=== PATIENT | female | born 1960 | race Caucasian/White ===

== ENCOUNTER 2016-09-14 15:00 | Emergency (ER) | payer MEDICAID ==
--- NOTE | 2016-09-14 15:35 | EDPHY ---
H & P Stated Complaint: SMAKED HEADS WITH ANOTHER DANCER 09/03/NO LOC/NOW CONFUSION/ SLOWNESS/EMOTION Time Seen by Provider: 09/14/16 15:11 HPI/ROS: Chief Complaint: Head injury, headache, confusion HPI: 56-year-old woman who sustained a head injury on the 03 of September when she was dancing. She collided with another dancer on the left side of her head. The following Monday developed a headache has been having persistent waxing and waning headaches since. At worst it is a 7/10. Now is a 3/10 shake. Has been taking some ibuprofen. She has also been having increasing word-finding, difficulty sleeping size, some intermittent blurry vision in feels like she is having difficulty concentrating. Patient states that she did have another head injury during yoga several weeks ago. She is feeling a bit she is increasingly emotional labile and is starting to get very tearful very quickly. She does states she has been having increasing stressors recently regarding her residence in dealing with her landlord. Has a history of depression but does not take any medications. No weight loss or weight gain. No fevers or chills. No nausea or vomiting. No urinary symptoms. No increased thirst or urination. ROS: 10 point Review of Systems is negative except as noted in the HPI. PMH: Chronic back pain, depression Medications: None Allergies: Sulfa Social History: No smoking, no alcohol, no recreational drug use Family History: non-contributory Physical Exam: Gen: Awake, Alert, No Distress HEENT: Nose: no rhinorrhea Eyes: PERRLA, EOMI Mouth: Moist mucosa Neck: Supple, no JVD Chest: nontender, lungs clear to auscultation Heart: S1, S2 normal, no murmur Abd: Soft, non-tender, no guarding Back: no CVA tenderness, no midline tenderness Ext: no edema, non-tender Skin: no rash Neuro: CN II-XII intact, Sensation grossly intact, Strength 5/5 in bilateral upper and lower extremities - Personal History Current Tetanus/Diphtheria Vaccine: Yes - Medical/Surgical History Hx Asthma: No Hx Chronic Respiratory Disease: No Hx Diabetes: No Hx Cardiac Disease: No Hx Renal Disease: No Hx Cirrhosis: No Hx Alcoholism: No Hx HIV/AIDS: No Hx Splenectomy or Spleen Trauma: No Other PMH: BACK PROB/ADRENAL ISSUES/HEAD INJ/ - Social History Smoking Status: Never smoked Constitutional: Initial Vital Signs Temperature (C) 36.5 C 09/14/16 15:05 Heart Rate 69 09/14/16 15:05 Respiratory Rate 22 H 09/14/16 15:05 Blood Pressure 96/62 L 09/14/16 15:05 O2 Sat (%) 100 09/14/16 15:05 O2 Delivery Mode Room Air Allergies/Adverse Reactions: Sulfa (Sulfonamide Antibiotics) Allergy (Verified 09/14/16 15:03) Home Medications: Medication Instructions Recorded NK [No Known Home Meds] 09/14/16 Medical Decision Making ED Course/Re-evaluation: CT scan of the brain is normal. No evidence of significant acute intracranial abnormality. I suspect the patient's symptomatology is more secondary to emotional rather than structural cause. I will refer her back to both her primary care physician in to her therapist. She is not acutely suicidal or delusional. She is annie for safety. She has been given head injury instructions for what to return for should there be any concerns. - Data Points Laboratory Results: 09/14/16 15:05 Urine Color YELLOW Urine Appearance CLEAR Urine pH 6.0 (5.0-7.5) Ur Specific [place] 1.003 (1.002-1.030) Urine Protein NEGATIVE (NEGATIVE) Urine Ketones NEGATIVE (NEGATIVE) Urine Blood 1+ H (NEGATIVE) Urine Nitrate NEGATIVE (NEGATIVE) Urine Bilirubin NEGATIVE (NEGATIVE) Urine Urobilinogen NEGATIVE EU EU (0.2-1.0) Ur Leukocyte Esterase NEGATIVE (NEGATIVE) Urine RBC 5-10 /hpf H /hpf (0-3) Urine WBC 1-3 /hpf /hpf (0-3) Ur Epithelial Cells TRACE /lpf /lpf (NONE-1+) Urine Glucose NEGATIVE (NEGATIVE) Departure - Departure Disposition: Home, Routine, Self-Care Clinical Impression: Head injury Condition: Good Instructions: Head Injury (ED) Additional Instructions: Follow up with primary care physician in 3-4 days for re-evaluation. Return to the emergency depart for increasing headache, nausea, vomiting, difficulty concentrating, increasing depression, suicidal or homicidal thoughts , or any other concerns. Referrals: Jessi Saleem MD [Primary Care Provider] - As per Instructions
[2016-09-14 15:51] LABS: COLOR YELLOW; LEUKOCYTE ESTERASE,URINE NEGATIVE (NEGATIVE); NITRITE,URINE NEGATIVE (NEGATIVE)
[2016-09-14 16:30] VITALS: BP 112/57; PULSE 64; RESP 16; TEMP 98.2; O2SAT 98
== END 2016-09-14 16:31 | disposition home or self-care (01) ==
DX: S09.90XA Unspecified injury of head, initial encounter (principal); W51.XXXA Accidental striking against or bumped into by another person, initial encounter; Y99.8 Other external cause status; Y93.41 Activity, dancing

== ENCOUNTER 2016-10-30 02:52 | Emergency (ER) | payer MEDICAID ==
--- NOTE | 2016-10-30 02:55 | EDPHY ---
H & P HPI/ROS: HPI CHIEF COMPLAINT: Contact dermatitis, allergic reaction HISTORY OF PRESENT ILLNESS: This patient very pleasant 56-year-old female, significant past medical history for chronic back pain and recent head injury, she was in [facility] recently and she was hiking, she went to use the bathroom and wiped her genital region with a leaf. This was about 24 hours ago. Earlier this morning or around 24 hours ago after the [place] wiping she developed some discomfort in her genital area, redness and swelling and itchiness. No significant pain. No fever. No drainage. No pus. No discharge. No abdominal pain or vaginal discharge. Patient states that she had a couple other areas of erythema blotchiness on her left hip left foot and arm that she thought maybe poison elisha versus a contact dermatitis. She is unsure exactly what leave she wiped with but now has pruritus swelling and redness to her vaginal area. She denies fever. She decided come the emergency room as symptoms have progressed with more pruritus, swelling, pain. She is unsure exactly what the leaf looked like. Past Medical History: Chronic back pain, closed head injury Past Surgical History: Denies recent surgical history Social History: Denies daily use of drugs alcohol tobacco products. Family History: Noncontributory ROS REVIEW OF SYSTEMS: A comprehensive 10 point review of systems is otherwise negative aside from elements mentioned in the history of present illness. Exam Constitutional appears well nontoxic, triage nursing summary reviewed, vital signs reviewed, awake/alert. Eyes normal conjunctivae and sclera, EOMI, PERRLA. HENT normal inspection, atraumatic, moist mucus membranes, no epistaxis, neck supple/ no meningismus, no raccoon eyes. Respiratory clear to auscultation bilaterally, normal breath sounds, no respiratory distress, no wheezing. Cardiovascular rate normal, regular rhythm, no murmur, no edema, distal pulses normal. Gastrointestinal soft, non-tender, no rebound, no guarding, normal bowel sounds, no distension, no pulsatile mass. Genitourinary external pelvic exam performed. 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 The labia majora, and suprapubic region months, is erythematous, warm, swollen, no pus, also noted next to the labia majora on the right side in the inguinal region there is a very small black dot that appears to be either a wound or scratch wound. No usha pus. No vaginal discharge on exam. No crusting. No yellow. No pus. It is pruritic. There is no crepitus. No gas on exam. Musculoskeletal no midline vertebral tenderness, full range of motion, no calf swelling, no tenderness of extremities, no meningismus, good pulses, neurovascularly intact. Skin left hip is a raised region of erythema, papule nature, no particular purpura, blanches, pruritus. No weeping. Neurologic awake, alert and oriented x 3, AAOx3, moves all 4 extremities equally, motor intact, sensory intact, CN II-XII intact, normal cerebellar, normal vision, normal speech. Psychiatric normal mood/affect. Heme/Lymph/Immune no lymphadenopathy. Differential Diagnosis: Includes but is not limited to in a particular order, contact dermatitis, allergic reaction, infection, cellulitis Medical Decision Making: Plan for this patient check basic blood work to help differentiate from infection versus contact dermatitis. Will most likely placed on Keflex, and prednisone. Will need close OBGYN follow-up. Patient does understand to return emergency room she develops worsening symptoms includes worsening swelling, fever, redness, drainage or questions or concerns. Re-evaluation: 041: spoke with OBGYN Swetha Stoddard, Who recommends p. o. prednisone oral steroids, she is fine with me prescribe her Keflex. I did go over this patient' s blood work she does not have a high leukocytosis. No fever. There is no pus. She recommends close follow up with OBGYN on Monday or Monday in clinic. Obviously return emergency room if there is a great amount of pain, trouble urinating fever or any worsening symptoms or questions or concerns. I did relay this to the patient. 0427: Had a very lengthy discussion with this patient about strict return precautions she understands return if she has worsening swelling, redness, drainage fever discomfort or any questions or concerns. She is able to urinate without difficulty. Able to walk without difficulty. I do recommend taking Keflex and prednisone as prescribed. Also follow up closely with OBGYN on Monday. Return ER for worsening symptoms. I do not feel that she needs to be hospitalized at this time as she is able to tolerate the discomfort, no fever, no drainage, no high white count. Able to urinate. And she is comfortable discharge planning and prescriptions. Source: Patient - Medical/Surgical History Hx Asthma: No Hx Chronic Respiratory Disease: No Hx Diabetes: No Hx Cardiac Disease: No Hx Renal Disease: No Hx Cirrhosis: No Hx Alcoholism: No Hx HIV/AIDS: No Hx Splenectomy or Spleen Trauma: No Other PMH: BACK PROB/ADRENAL ISSUES/HEAD INJ/ - Social History Smoking Status: Never smoked Constitutional: Initial Vital Signs Temperature (C) 36.5 C 10/30/16 03:07 Heart Rate 71 10/30/16 03:07 Respiratory Rate 18 10/30/16 03:07 Blood Pressure 132/59 H 10/30/16 03:07 O2 Sat (%) 99 10/30/16 03:07 O2 Delivery Mode Room Air Allergies/Adverse Reactions: poison elisha extract Allergy (Verified 10/30/16 03:02) Sulfa (Sulfonamide Antibiotics) Allergy (Verified 09/14/16 15:03) Home Medications: Medication Instructions Recorded Cephalexin [Keflex] 500 mg PO Q6H #28 cap 10/30/16 Ibuprofen [Motrin (*)] 800 mg PO Q6-8PRN #30 tab 10/30/16 predniSONE 60 mg PO DAILY #15 tab 10/30/16 Medical Decision Making - Data Points Laboratory Results: Laboratory Results 10/30/16 03:19 10/30/16 03:19 10/30/16 10/30/16 03:19 03:19 WBC 5.68 10^3/uL 10^3/uL (3.80-9.50) RBC 4.68 10^6/uL 10^6/uL (4.18-5.33) Hgb 13.7 g/dL g/dL (12.6-16.3) Hct 41.2 % % (38.0-47.0) MCV 88.0 fL fL (81.5-99.8) MCH 29.3 pg pg (27.9-34.1) MCHC 33.3 g/dL g/dL (32.4-36.7) RDW 12.4 % % (11.5-15.2) Plt Count 236 10^3/uL 10^3/uL (150-400) MPV 9.8 fL fL (8.7-11.7) Neut % (Auto) 68.8 % % (39.3-74.2) Lymph % (Auto) 18.1 % % (15.0-45.0) Pettis % (Auto) 9.0 % % (4.5-13.0) Eos % (Auto) 3.3 % % (0.6-7.6) Baso % (Auto) 0.4 % % (0.3-1.7) Nucleat RBC Rel Count 0.0 % % (0.0-0.2) Absolute Neuts (auto) 3.91 10^3/uL 10^3/uL (1.70-6.50) Absolute Lymphs (auto) 1.03 10^3/uL 10^3/uL (1.00-3.00) Absolute Monos (auto) 0.51 10^3/uL 10^3/uL (0.30-0.80) Absolute Eos (auto) 0.19 10^3/uL 10^3/uL (0.03-0.40) Absolute Basos (auto) 0.02 10^3/uL 10^3/uL (0.02-0.10) Absolute Nucleated RBC 0.00 10^3/uL 10^3/uL (0-0.01) Immature Gran % 0.4 % % (0.0-1.1) Immature Gran # 0.02 10^3/uL 10^3/uL (0.00-0.10) Sodium 139 mEq/L mEq/L (134-144) Potassium 3.7 mEq/L mEq/L (3.5-5.2) Chloride 104 mEq/L mEq/L (97-110) Carbon Dioxide 23 mEq/l mEq/l (22-31) Anion Gap 12 mEq/L mEq/L (8-16) BUN 12 mg/dL mg/dL (7-23) Creatinine 0.7 mg/dL mg/dL (0.6-1.0) Estimated GFR > 60 Glucose 88 mg/dL mg/dL (70-100) Calcium 9.5 mg/dL mg/dL (8.5-10.4) Medications Given: Discontinued Medications Ibuprofen (Motrin) 600 mg PO EDNOW ONE Stop: 10/30/16 03:58 Last Admin: 10/30/16 04:04 Dose: 600 mg Departure - Departure Disposition: Home, Routine, Self-Care Clinical Impression: Contact dermatitis Qualifiers: Contact dermatitis type: unspecified Contact dermatitis trigger: other trigger Qualified Code(s): L25.8 - Unspecified contact dermatitis due to other agents Condition: Good Instructions: Contact Dermatitis (ED) Additional Instructions: 1. Recommend cool compresses. Or cold Sitz baths. 2. Take prednisone as prescribed. 3. Take antibiotic as prescribed. 4. Please follow up with or OBGYN on Monday please call their for an appointment. 5. Return immediately to the emergency review of worsening pain, swelling, redness, fever, drainage. Or any questions or concerns. Referrals: Jessi Saleem MD [Primary Care Provider] - As per Instructions Swetha Mcdonough MD [Medical Doctor] - As per Instructions Prescriptions: Cephalexin [Keflex] 500 mg PO Q6H #28 cap Ibuprofen [Motrin (*)] 800 mg PO Q6-8PRN #30 tab predniSONE 60 mg PO DAILY #15 tab
[2016-10-30 03:11] VITALS: PULSE 71; RESP 18; TEMP 97.7; O2SAT 99
[2016-10-30 03:28] LABS: % IMMATURE GRANULYOCYTES 0.4 % (0.0-1.1); ABSOLUTE IMMATURE GRANULOCYTES 0.02 10^3/uL (0.00-0.10); ADD DIFF? NO; ADD MORPH? NO; ADD SCAN? NO; ATYPICAL LYMPHOCYTE FLAG 0 (0-99); FRAGMENT RBC FLAG 0 (0-99); HEMATOCRIT 41.2 % (38.0-47.0); HEMOGLOBIN 13.7 g/dL (12.6-16.3); LEFT SHIFT FLG 0 (0-99); LIPEMIA HEMOLYSIS FLAG 80 (0-99); MEAN CELL HEMOGLOBIN 29.3 pg (27.9-34.1); MEAN CELL HEMOGLOBIN CONCENTR. 33.3 g/dL (32.4-36.7); MEAN PLATELET VOLUME 9.8 fL (8.7-11.7); PLATELET CLUMPS FLAG 20 (0-99); PLATELET COUNT 236 10^3/uL (150-400); RED BLOOD CELL COUNT 4.68 10^6/uL (4.18-5.33); RED CELL DISTRIBUTION WIDTH 12.4 % (11.5-15.2)
[2016-10-30] MEDS ORDERED: ONDANSETRON 4 MG/2 ML VIAL ONE (03:30)
[2016-10-30 03:40] LABS: ANION GAP 12 mEq/L (8-16); CALCIUM 9.5 mg/dL (8.5-10.4); CARBON DIOXIDE 23 mEq/l (22-31); CHLORIDE 104 mEq/L (97-110); CREATININE 0.7 mg/dL (0.6-1.0); GLOMERULAR FILTRATION RATE > 60; GLUCOSE 88 mg/dL (70-100); POTASSIUM 3.7 mEq/L (3.5-5.2); SODIUM 139 mEq/L (134-144)
[2016-10-30] MEDS ORDERED: IBUPROFEN 600 MG TAB PO ONE (03:57)
[2016-10-30] MEDS ORDERED: predniSONE 20 MG TAB PO ONE (04:15)
[2016-10-30 04:43] VITALS: BP 118/60
== END 2016-10-30 04:42 | disposition home or self-care (01) ==
DX: L25.8 Unspecified contact dermatitis due to other agents (principal)
CPT/HCPCS: J2405